=== PATIENT | male | born 1980 | race Two or more races ===

== ENCOUNTER 2022-03-12 12:37 | Inpatient (IN) | payer OTHER ==
[2022-03-12 14:03] VITALS: BMI 30.1
[2022-03-12] MEDS ORDERED: methaDONE HCL 10 MG TABLET (FOR DETOX USE ONLY) PO ONE (14:33)
[2022-03-12] MEDS ORDERED: ACETAMINOPHEN 325 MG TABLET (FP) PO PRN ×2 (14:33)
[2022-03-12] MEDS ORDERED: MAGNESIUM CITRATE 300 ML BOTTLE PO PRN (14:33)
[2022-03-12] MEDS ORDERED: MAGNESIUM HYDROX 2400MG/30ML ORAL SUSPENSION 30 ML CUP PO PRN (14:33)
[2022-03-12] MEDS ORDERED: BENZOCAINE/MENTHOL (CHLORASEPTIC ) LOZENGE MM PRN (14:33)
[2022-03-12] MEDS ORDERED: NALOXONE HCL (KLOXXADO) 8 MG SPRAY NS PRN (14:33)
[2022-03-12] MEDS ORDERED: IBUPROFEN 400 MG TABLET (FP) PO PRN (14:33)
[2022-03-12] MEDS ORDERED: LOPERAMIDE HCL 2 MG CAPSULE PO PRN (14:33)
[2022-03-12] MEDS ORDERED: MAG HYDROX/AL HYDROX/SIMETH 30 ML UNIT-DOSE CUP PO PRN (14:33)
[2022-03-12] MEDS ORDERED: NICOTINE 10 MG CARTRIDGE (INHALER) IH PRN (14:33)
[2022-03-12] MEDS ORDERED: ONDANSETRON *ODT* 4 MG TABLET SL PRN (14:33)
[2022-03-12] MEDS ORDERED: DICYCLOMINE HCL 10 MG CAPSULE PO PRN (14:33)
[2022-03-12] MEDS ORDERED: cloNIDine HCL 0.1 MG TABLET PO PRN (14:33)
[2022-03-12] MEDS ORDERED: IBUPROFEN 600 MG TABLET (FP) PO PRN (14:33)
[2022-03-12] MEDS ORDERED: BISMUTH SUBSALICYLATE 262 MG/15 ML BTL PO PRN (14:33)
[2022-03-12] MEDS ORDERED: NICOTINE POLACRILEX 4 MG GUM BUC PRN (14:33)
[2022-03-12] MEDS: PRENATAL VITAMINS W/ FOLIC ACID TABLET (FP) PO SCH (18:05)
[2022-03-12] MEDS: hydrOXYzine PAMOATE 25 MG CAPSULE (FP) PO SCH ×2 (18:06→22:07)
[2022-03-12] MEDS: diazePAM 5 MG TABLET PO SCH ×2 (18:06→22:06)
[2022-03-12] MEDS: MELATONIN 5 MG TABLETS PO SCH (22:05)
[2022-03-12] MEDS: THIAMINE HCL 100 MG TABLET (FP) PO SCH (22:07)
[2022-03-13] MEDS: hydrOXYzine PAMOATE 25 MG CAPSULE (FP) PO SCH ×5 (06:02→21:16)
[2022-03-13] MEDS: diazePAM 5 MG TABLET PO SCH ×4 (06:02→22:10)
[2022-03-13] MEDS ORDERED: methaDONE HCL 10 MG TABLET (FOR DETOX USE ONLY) ONE (09:27)
[2022-03-13] MEDS: PRENATAL VITAMINS W/ FOLIC ACID TABLET (FP) PO SCH (10:20)
[2022-03-13 13:38] LABS: HEMATOCRIT 41.1 % (35.4-49); HEMOGLOBIN 13.1 GM/dL (11.7-16.9); MCH 24.8 pg (25.7-33.7); MCHC 31.8 g/dl (32.0-35.9); MEAN CELL VOLUME 78.1 fl (80-96); MEAN PLT VOLUME 9.8 fl (7.5-11.1); PLATELET COUNT 193 10^3/uL (134-434); RBC 5.27 M/mm3 (4.00-5.60); RDW 15.2 % (11.9-15.9); WHITE BLOOD COUNT 5.2 K/mm3 (4.0-10.0)
[2022-03-13 14:06] LABS: ALBUMIN 3.3 g/dl (3.4-5.0)
[2022-03-13 14:10] LABS: BILIRUBIN,TOTAL 0.2 mg/dL (0.2-1); TOT PROT 6.4 g/dl (6.4-8.2)
[2022-03-13] MEDS: THIAMINE HCL 100 MG TABLET (FP) PO SCH (21:16)
[2022-03-13] MEDS: MELATONIN 5 MG TABLETS PO SCH (21:16)
[2022-03-14] MEDS: diazePAM 5 MG TABLET PO PRN ×3 (01:46→17:55)
[2022-03-14] MEDS: diazePAM 5 MG TABLET PO SCH ×3 (06:35→22:23)
[2022-03-14] MEDS: hydrOXYzine PAMOATE 25 MG CAPSULE (FP) PO SCH ×5 (06:36→22:23)
[2022-03-14] MEDS ORDERED: methaDONE HCL 10 MG TABLET (FOR DETOX USE ONLY) PO ONE (10:00)
[2022-03-14] MEDS: PRENATAL VITAMINS W/ FOLIC ACID TABLET (FP) PO SCH (10:10)
[2022-03-14] MEDS: METHOCARBAMOL 500 MG TABLET PO PRN (10:11)
[2022-03-14] MEDS: MELATONIN 5 MG TABLETS PO SCH (22:23)
[2022-03-14] MEDS: THIAMINE HCL 100 MG TABLET (FP) PO SCH (22:23)
[2022-03-15] MEDS: diazePAM 5 MG TABLET PO SCH ×2 (05:05→18:04)
[2022-03-15] MEDS: hydrOXYzine PAMOATE 25 MG CAPSULE (FP) PO SCH ×5 (05:06→22:04)
[2022-03-15] MEDS ORDERED: methaDONE HCL 10 MG TABLET (FOR DETOX USE ONLY) ONE (09:20)
[2022-03-15] MEDS: PRENATAL VITAMINS W/ FOLIC ACID TABLET (FP) PO SCH (09:53)
[2022-03-15] MEDS: METHOCARBAMOL 500 MG TABLET PO PRN ×2 (09:54→22:04)
[2022-03-15] MEDS: diazePAM 5 MG TABLET PO PRN (09:55)
[2022-03-15] MEDS: THIAMINE HCL 100 MG TABLET (FP) PO SCH (22:04)
[2022-03-15] MEDS: MELATONIN 5 MG TABLETS PO SCH (22:04)
[2022-03-15 22:49] VITALS: RESP 18
[2022-03-16] MEDS: hydrOXYzine PAMOATE 25 MG CAPSULE (FP) PO SCH ×2 (05:42→10:04)
[2022-03-16] MEDS ORDERED: diazePAM 5 MG TABLET PO ONE (06:00)
[2022-03-16 08:58] VITALS: BP 98/63; PULSE 64; TEMP 98.7
[2022-03-16] MEDS ORDERED: methaDONE HCL 10 MG TABLET (FOR DETOX USE ONLY) PO ONE (10:00)
[2022-03-16] MEDS: PRENATAL VITAMINS W/ FOLIC ACID TABLET (FP) PO SCH (10:04)
== END 2022-03-16 11:45 | disposition home or self-care (01) | DRG 773 ==
LOC: YASAS 12:37 → Y3N 15:15
PROVIDERS: ADMIT Allergy & Immunology; ATTEND Surgery
PROC: HZ2ZZZZ Detoxification Services for Substance Abuse Treatment (ICD-10-PCS; principal; 2022-03-12)
DX: F13.230 Sedative, hypnotic or anxiolytic dependence with withdrawal, uncomplicated (principal); F11.20 Opioid dependence, uncomplicated; F14.10 Cocaine abuse, uncomplicated; F17.210 Nicotine dependence, cigarettes, uncomplicated; F19.24 Other psychoactive substance dependence with psychoactive substance-induced mood disorder; E78.5 Hyperlipidemia, unspecified; Z86.19 Personal history of other infectious and parasitic diseases
CPT/HCPCS: 36415; 80053; 85027; 86780; 87811; C9803-CS; U0003; U0005